=== PATIENT | female | born 2005 | race Two or more races ===

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

== ENCOUNTER 2024-02-11 10:33 | Emergency (ER) | payer MEDICAID ==
[~2024-02-11] VITALS: Ht 160 cm; Wt 70.0 kg
[2024-02-11 10:37] VITALS: BP 127/83; PULSE 98; RESP 18; TEMP 98; O2SAT 98
[2024-02-11] MEDS ORDERED: ALBU8HFA INH (12:23)
[2024-02-11] MEDS ORDERED: PROM118S5 PO (12:23)
[2024-02-11] MEDS ORDERED: PRED20TA PO (12:23)
== END 2024-02-11 13:15 | disposition home or self-care (01) ==
LOC: ER 10:33
DX: B34.9 Viral infection, unspecified (principal); F12.90 Cannabis use, unspecified, uncomplicated
CPT/HCPCS: 71045; 99283